=== PATIENT | male | born 1990 | race Hispanic/Latino ===

== ENCOUNTER 2017-01-23 08:01 | Emergency (ER) | payer OTHER ==
[~2017-01-23] VITALS: Ht 177.8 cm; Wt 136.4 kg
[2017-01-23 08:07] VITALS: BP 141/91; PULSE 72; RESP 18; O2SAT 97
--- NOTE | 2017-01-23 08:13 | ED.REPORT ---
HPI-Abd Pain M Under 40 Date of Service Jan 23, 2017 ED Provider: Henrry Long MD The patient is a 26 year old male with history of GERD who presents to the emergency department complaining of upper abdominal pain that began at 0230 this morning. Last night he felt like he had some acid reflux. He took TUMS and went to sleep but woke up at 0230 with severe pain to his upper abdomen. He has also experienced nausea. He has had similar symptoms in the past but the pain normally goes away. He denies fever, chills, vomiting, bloody emesis, black/ tarry stools or diarrhea. He drinks maybe 1 alcoholic drink per day. He does not normally take NSAID medications. He has not previously had abdominal surgery. Nursing Notes Stated Complaint: STOMACH PAIN/BACK PAIN Chief Complaint: Male Abdominal Pain Nursing Notes Reviewed: Yes Allergies: Coded Allergies: metoclopramide HCl (Verified Adverse Reaction, Severe, Nausea,Vomiting, ) Pt became more nauseated and vomited after taking med. Sister is allergic/has adv rxn to Reglan as well. Scheduled Pantoprazole DR (Pantoprazole DR) 20 Mg Tablet.dr 20 MG PO BID General Time Seen by MD: 08:07 Chief Complaint Abdominal pain Hx Obtained From: Patient Arrived By: Walk-in Sudden in Onset?: Yes Onset Occurred: 5 - 8 hours ago Symptom Duration: Since onset Progression since Onset: Constant Location: : Abdomen upper Quality: Painful Radiation: : Does not radiate Severity: Current: Moderate Severity: Maximum: Moderate Associated with: Reports: Nausea Pertinent Negative: Pt denies other symptoms Recent Healthcare: No recent doctor visit, No recent hospitalization Similar Sx Previous: Yes Past Medical History Past Medical History GERD Past Surgical History No previous abdominal surgeries Family History Noncontributory Social History Alcohol Use: "Social" Other Social History: Good social support, , Lives with children, Local resident Ambulatory Status Independent Review of Systems Constitutional: Denies: Chills, Fever GI: Reports: Abdominal pain, Nausea, Denies: Bloody/tarry stool, Diarrhea, Hematemesis, Hematochezia, Melena, Vomiting Complete sys rev & neg: except as marked. Physical Exam Initial Vital Signs Vital Signs (First) Date Time Temp Pulse Resp B/P Pulse Ox O2 Delivery O2 Flow Rate FiO2 01/23/17 08:07 37.4 72 18 141/91 97 Room Air Initial VS: Reviewed Head / Eyes: Atraumatic, Normocephalic, PERRL ENT: Mucous membranes moist, Conjunctiva normal, No scleral icterus Neck: Supple, Non-tender, Full range of motion Lymphatic: No lymphadenopathy Extremities: Vascular intact, Neuro intact, No swelling, No tenderness Skin: Warm, Dry, No cyanosis Neurologic: Alert, Oriented, Nonfocal Psychiatric: Mood/affect normal, Behavior normal, Normal thought content General/Constitutional: Awake, Alert, No acute distress, Well appearing Respiratory / Chest: Atraumatic, Breath sounds NL, Breath sounds = bilat, No respiratory distress, No rales, No rhonchi, No wheezing, No stridor Cardiovascular: Heart rate NL, Regular rhythm, Heart sounds NL, No gallop, No murmurs, No rubs, Peripheral circulation NL Abdomen: Soft, No guarding, No rebound, BS normoactive, No distention, No hernia, No palpable mass, No pulsatile mass Tenderness/Guarding/Rebound: Positive: Tender epigastric Back: No midline vertebral tend Interpretation & Diagnostics Lab Results Interpretation Result Diagram: 01/23/17 0810 01/23/17 0810 Test 01/23/17 08:10 White Blood Count 9.7th/mm3 (3.8-10.1) Red Blood Count 5.80mil/mm3 (4.40-5.80) Hemoglobin 16.7g/dL (13.8-17.2) Hematocrit 47.9% (41.0-50.0) Mean Corpuscular Volume 82.6fL (81-100) Mean Corpuscular Hemoglobin 28.8pg (27.0-35.0) Mean Corpuscular Hemoglobin Concent 34.9% (32.0-37.0) Red Cell Distribution Width 12.9% (12.3-15.4) Platelet Count 219bil/L (150-400) Neutrophils (%) (Auto) 59.8% (40-74) Lymphocytes (%) (Auto) 29.4% (14-46) Monocytes (%) (Auto) 6.9% (4-12) Eosinophils (%) (Auto) 3.3% (0-5) Basophils (%) (Auto) 0.5% (0-3) Sodium Level 141mEq/L (134-144) Potassium Level 3.8mEq/L (3.5-5.2) Chloride Level 103mEq/L (97-108) Carbon Dioxide Level 23mmol/L (18-29) Blood Urea Nitrogen 8mg/dL (6-20) Creatinine 0.87mg/dL (0.76-1.27) Estimat Glomerular Filtration Rate 112mL/min (>59) Glucose Level 104mg/dL (60-99) Calcium Level 8.7mg/dL (8.5-10.1) Total Bilirubin 0.9mg/dL (0.0-1.2) Aspartate Amino Transf (AST/SGOT) 31U/L (0-50) Alanine Aminotransferase (ALT/SGPT) 78U/L (0-44) Alkaline Phosphatase 90U/L (25-150) Total Protein 7.1g/dL (6.4-8.4) Albumin 4.0g/dL (3.4-5.0) Lipase 61U/L (13-60) Re-Eval/Medical Decision Med Decision/Clinical Course The patient is a 26 year old male with history of GERD who presents to the emergency department complaining of upper abdominal pain that began at 0230 this morning. Last night he felt like he had some acid reflux. He took TUMS and went to sleep but woke up at 0230 with severe pain to his upper abdomen. He has also experienced nausea. He has had similar symptoms in the past but the pain normally goes away, this morning and has been more persistent. Here in the emergency department he is afebrile with stable vital signs and appears moderately uncomfortable with mild tenderness about the epigastrium. Treated with IVF, Zofran, IV pantoprazole, and a GI cocktail. [place] for pain. Thereafter the patient reported near-complete resolution of his symptoms. Serial abdominal examinations remained benign. Overall presentation was consistent with GERD/gastritis versus peptic ulcer disease. No evidence of perforated ulcer. Abdominal examination relatively benign. I see no indication to obtain imaging studies at this time. Nature of pain and presentation unconvincing for acute biliary etiology. No findings suggestive of acute surgical process. Patient will be started on pantoprazole and was advised of dietary lifestyle changes including avoidance of NSAIDs/alcohol. He has been referred to GI. Follow-up and return precautions were reviewed in detail and he was discharged in good condition. LABS: CBC unremarkable, CMP mildly elevated lipase of 61, mildly elevated ALT, otherwise unremarkable. Source of Hx: Old records Re-Evaluation/Progress : Time of Eval: 09:05 Re-Evaluation/Progress Note: Rechecked the patient. Discussed plan for discharge. All questions were addressed. Counseled Regarding: Diagnosis, Lab results, Need for follow-up, When/why to return to ED Patient Discharge & Departure Primary Impression: Epigastric pain Additional Impressions: Gastritis Alcohol use GERD (gastroesophageal reflux disease) Esophagitis presence: esophagitis presence not specified Qualified Code: K21.9 - Gastro-esophageal reflux disease without esophagitis Disposition: Home Discharge Condition All VS Reviewed: Yes Condition: Stable Additional Instructions: Thank you for seeking care at the emergency room. It is difficult for us to make definitive diagnoses in the ED but we believe that you are experiencing acid reflux. Our primary goal today in the ED was to evaluate you for any life-threatening conditions. Your evaluation was reassuring. You will be discharged with a prescription for pantoprazole. I recommend avoiding any NSAID medications and alcohol. You should follow-up with a conflict resolution professional. We have given you a referral to Dr. Parra. You should return to the ED immediately if you develop increased pain, fevers, vomiting, bloody stools, black/tarry stools. or any other concerning signs or symptoms. Thank you for letting us partake in your care today. Referrals: Adán Parra MD [facility] Scribe Attestation Portions of this note were transcribed by Daria Hartman. I, Dr. Long personally performed the history, physical exam and medical decision-making; I reviewed and confirmed the accuracy of the information in the transcribed note. Signed by: Liang Springer, 01/23/2017 at 0915. Henrry Long MD Jan 23, 2017 08:13 Daria Hartman Jan 23, 2017 08:16 Henrry Long MD Jan 23, 2017 08:13 Daria Hartman Jan 23, 2017 08:16
[2017-01-23] MEDS ORDERED: 0.9% Sodium Chloride 1,000 ML IV ONE (08:24)
[2017-01-23] MEDS ORDERED: Ondansetron 2 mg/mL 2 mL Inj IVPUSH ONE (08:25)
[2017-01-23] MEDS ORDERED: LidocaineVisc 2%:Antacid 1:1 10 mL Syringe PO ONE (08:25)
[2017-01-23] MEDS ORDERED: Pantoprazole 4 mg/mL 10 mL Inj IVPUSH ONE (08:25)
[2017-01-23] MEDS ORDERED: PANT20TA2 PO (08:26)
[2017-01-23 08:32] LABS: BASOPHILS % (AUTO) 0.5 % (0-3); EOSINOPHILS % (AUTO) 3.3 % (0-5); MONOCYTES % (AUTO) 6.9 % (4-12); Mean Corpuscular Hemoglobin 28.8 pg (27.0-35.0); Mean Corpuscular Volume 82.6 fL (81-100); NEUTROPHILS % (AUTO) 59.8 % (40-74); Platelet Count 219 bil/L (150-400)
[2017-01-23] MEDS ORDERED: HYDROcodone-APAP 10-325 mg PO ONE (09:15)
[2017-01-23 09:31] VITALS: BP 125/90; PULSE 64; RESP 20; O2SAT 98
== END 2017-01-23 09:33 | disposition home or self-care (01) ==
LOC: SED 08:01
DX: R10.13 Epigastric pain (principal); K29.70 Gastritis, unspecified, without bleeding; K21.9 Gastro-esophageal reflux disease without esophagitis; Z72.89 Other problems related to lifestyle; Z88.8 Allergy status to other drugs, medicaments and biological substances
CPT/HCPCS: 36415; 80053; 83690; 85025; 96361; 96374; 96375; 99284; J2405; J7030

== ENCOUNTER 2017-01-26 18:48 | Inpatient (IN) | payer OTHER ==
[~2017-01-26] VITALS: Ht 177.8 cm; Wt 144.0 kg
[~2017-01-26 18:48] MED LIST: Dexamethasone 4 mg/mL Inj ONE; Glycopyrrolate 0.2 mg/mL 5 mL Inj ONE; Neostigmine 1 mg/mL 10 mL Inj ONE; Ondansetron 2 mg/mL 2 mL Inj ONE; PANT20TA2 PO; Phenylephrine/NS 100 mCg/mL 10 mL Syringe IVPUSH ONE; Propofol 10,000 mCg/mL 20 mL Inj ONE; Rocuronium 10 mg/mL 5 mL Inj ONE; fentaNYL-PF 50 mCg/mL 2 mL Inj ONE
[2017-01-26 18:56] VITALS: BP 138/84; PULSE 77; RESP 16; O2SAT 95
[2017-01-26] MEDS ORDERED: Ondansetron 2 mg/mL 2 mL Inj ONE (19:42)
[2017-01-26 20:07] LABS: BASOPHILS % (AUTO) 1.1 % (0-3); EOSINOPHILS % (AUTO) 4.1 % (0-5); MONOCYTES % (AUTO) 9.7 % (4-12); Mean Corpuscular Hemoglobin 28.4 pg (27.0-35.0); Mean Corpuscular Volume 82.2 fL (81-100); NEUTROPHILS % (AUTO) 49.6 % (40-74); Platelet Count 243 bil/L (150-400)
--- NOTE | 2017-01-26 20:54 | ED.REPORT ---
HPI-Abd Pain M Under 40 Date of Service Jan 26, 2017 ED Provider: Prieto Abreu MD The patient is an otherwise healthy 26 year old male w/ a hx of GERD who presents to the ED due to episodic RUQ abdominal pain worsening over the past 4 days. He had an ultrasound done 01/25/17 which showed an abnormal gallbladder with focal areas of wall thickening and multiple small gallstones. Today at [facility], his liver enzymes were high and doctors referred him to the ED. Associated symptoms include nausea. He denies vomiting and fever. He last ate food at 1400. He drinks maybe 1 alcoholic drink per day. He does not normally take NSAID medications. He has not previously had abdominal surgery.He was last seen at the ED 01/23/17 for similar symptoms. Nursing Notes Stated Complaint: GALLBLADDER PAIN Chief Complaint: Male Abdominal Pain Nursing Notes Reviewed: Yes Allergies: Coded Allergies: metoclopramide HCl (Verified Adverse Reaction, Severe, Nausea,Vomiting, ) Pt became more nauseated and vomited after taking med. Sister is allergic/has adv rxn to Reglan as well. Scheduled Pantoprazole DR (Pantoprazole DR) 20 Mg Tablet.dr 20 MG PO BID Scheduled PRN Hydrocodone-Acetaminophen 5-325 mg (Hydrocodone-Acetaminophen 5-325 mg) 1 Each Tablet 1 TABLET PO Q4H PRN PRN For Pain Methocarbamol (Methocarbamol) 750 Mg Tablet 750 MG PO QID PRN PRN For Spasm General Time Seen by MD: 20:52 Chief Complaint Abdominal pain Hx Obtained From: Patient Arrived By: Walk-in Sudden in Onset?: Yes Past Medical History Past Medical History GERD Past Surgical History No previous abdominal surgeries Family History Noncontributory Social History Alcohol Use: "Social" Other Social History: Good social support, , Lives with children, Local resident Ambulatory Status Independent Review of Systems Constitutional: Denies: Fever GI: Reports: Abdominal pain, Nausea, Denies: Vomiting Complete sys rev & neg: except as marked. Physical Exam Physical Exam Notes: Initial Vital Signs Vital Signs (First) Date Time Temp Pulse Resp B/P Pulse Ox O2 Delivery O2 Flow Rate FiO2 01/26/17 18:56 36.2 77 16 138/84 95 Room Air Initial VS: Reviewed Head / Eyes: Atraumatic, Normocephalic, PERRL ENT: Mucous membranes moist, Conjunctiva normal, No scleral icterus Neck: Supple, Non-tender, Full range of motion Extremities: Vascular intact, Neuro intact, No swelling, No tenderness Skin: Warm, Dry, No cyanosis General/Constitutional: Awake, Alert, Cooperative Respiratory / Chest: Atraumatic, Breath sounds NL, No respiratory distress Cardiovascular: Heart rate NL, Regular rhythm, Heart sounds NL Abdomen: No guarding, No rebound, BS normoactive Tenderness/Guarding/Rebound: Positive: Tender RUQ... Back: Atraumatic, Inspection NL, Full range of motion Interpretation & Diagnostics Lab Results Interpretation Result Diagram: 01/26/17194401/26/171944 Test 01/26/17 19:45 White Blood Count 6.4th/mm3 (3.8-10.1) Red Blood Count 5.89mil/mm3 (4.40-5.80) Hemoglobin 16.7g/dL (13.8-17.2) Hematocrit 48.4% (41.0-50.0) Mean Corpuscular Volume 82.2fL (81-100) Mean Corpuscular Hemoglobin 28.4pg (27.0-35.0) Mean Corpuscular Hemoglobin Concent 34.5% (32.0-37.0) Red Cell Distribution Width 13.2% (12.3-15.4) Platelet Count 243bil/L (150-400) Neutrophils (%) (Auto) 49.6% (40-74) Lymphocytes (%) (Auto) 35.3% (14-46) Monocytes (%) (Auto) 9.7% (4-12) Eosinophils (%) (Auto) 4.1% (0-5) Basophils (%) (Auto) 1.1% (0-3) Hold Purple Top Tube Received (Received) Hold Blue Top Tube Received (Received) Sodium Level 134mEq/L (134-144) Potassium Level 3.8mEq/L (3.5-5.2) Chloride Level 99mEq/L (97-108) Carbon Dioxide Level 24mmol/L (18-29) Blood Urea Nitrogen 10mg/dL (6-20) Creatinine 0.77mg/dL (0.76-1.27) Estimat Glomerular Filtration Rate 129mL/min (>59) Glucose Level 95mg/dL (60-99) Calcium Level 8.9mg/dL (8.5-10.1) Magnesium Level 2.0mg/dL (1.6-2.6) Total Bilirubin 3.2mg/dL (0.0-1.2) Aspartate Amino Transf (AST/SGOT) 273U/L (0-50) Alanine Aminotransferase (ALT/SGPT) 364U/L (0-44) Alkaline Phosphatase 108U/L (25-150) Total Protein 7.1g/dL (6.4-8.4) Albumin 3.9g/dL (3.4-5.0) Lipase 44U/L (13-60) Hold [place] Top Tube Received (Received) Hold [place] Top Tube Received (Received) Re-Eval/Medical Decision Med Decision/Clinical Course GI input appreciated, CBP not visualized today. Was normal yesterday. Dr Ryan aware of concern for possible choledocholithiasis and will reassess in am. Zosyn started in ED. Given IV fluids, pain and nausea meds, will admit to surgery with GI consulting. Consultation #1: Referral / Consult Name: Jeremie Ryan MD Consulted With: Hospitalist Call Returned at: 21:55 Ebd Special Education Teacher: Agrees with eval, Agrees with plan, Accepts admit Note: Case discussed. Dr. Ryan will admit. Consultation #2: Referral / Consult Name: Jeremie Ryan MD Call Returned at: 22:44 Ebd Special Education Teacher: Will see patient Note: Dr. Ryan sees pt in the ED. Counseled Regarding: Diagnosis, Lab results, Need for admission Patient Discharge & Departure Primary Impression: Acute cholecystitis Disposition: ADMITTED TO HOSPITAL Discharge Condition All VS Reviewed: Yes Condition: Stable Referrals: Lilia Pro MD (PCP) Joel Attestation Portion of this note were transcribed by Dottie Rosas. I, Dr. Abreu, personally performed the history, physical exam, and medical decision-making: I reviewed and confirmed the accuracy for the information in the transcribed note. Signed by: joel Shah, 01/26/17 2300 copies to: Lilia Pro MD, Donald L MD Jan 26, 2017 20:54 Dottie Rosas Jan 26, 2017 21:04
[2017-01-26] MEDS: HYDROmorphone 1 mg/mL Inj IVPUSH PRN ×2 (21:15→21:58)
[2017-01-26] MEDS: Ondansetron 2 mg/mL 2 mL Inj IVPUSH PRN ×2 (21:15→22:00)
[2017-01-26] MEDS ORDERED: HYDR-4003 PO (22:12)
[2017-01-26] MEDS ORDERED: METH750T3 PO (22:12)
--- NOTE | 2017-01-26 22:38 | DRSVH ---
PROCEDURE: US ABDOMEN, LIMITED ([id number]) INDICATIONS: evaluate for cholecystitis TECHNIQUE: Real-time focused scanning was performed of the abdomen, with image documentation. COMPARISON: [facility], US, ABDOMEN SONOGRAM, 10/13/2013, 10:25. [facility] , US, US ABDOMEN, 01/25/2017, 15:55. FINDINGS: The gallbladder is semi-contracted. There are multiple gallstones. There is color wall thic kening measuring up to 6.8 mm. There is positive sonographic Noland sign. No pericholecystic fluid co llections. The common bile duct is not visualized. IMPRESSION: Cholelithiasis. There is gallbladder wall thickening and positive sonographic Noland sign , suspicious for acute cholecystitis. Dictated by: Mary Ross M.D. on 01/26/2017 at 22:33 Approved by: Mary Ross M.D. on 01/26/2017 at 22:36
[2017-01-26] MEDS ORDERED: Ondansetron 2 mg/mL 2 mL Inj IVPUSH PRN ×2 (22:50→23:40)
[2017-01-26] MEDS ORDERED: Piperacillin-Tazo 3.375 Gm Inj 3.375 GM in Dextrose 5% Minibag Plus 50 ML IV ONE (23:05)
[2017-01-26] MEDS ORDERED: Ondansetron 8 mg ODT Tablet PO PRN (23:40)
[2017-01-26] MEDS ORDERED: Morphine PCA 1 mg/mL 30 mL Inj - Standard IV PRN ×2 (23:40)
[2017-01-26] MEDS ORDERED: MetoCLOpramide 5 mg/mL 2 mL Inj IVPUSH PRN (23:40)
[2017-01-26 23:51] VITALS: RESP 18; O2SAT 98
[2017-01-26 23:54] VITALS: BP 110/70; PULSE 70; RESP 20; O2SAT 95
[2017-01-26] MEDS: 0.9% Sodium Chloride 1,000 ML IV SCH (23:59)
[2017-01-27] VITALS (15 sets, daily range): BP systolic 98–126; BP diastolic 61–81; PULSE 62–101; RESP 9–20; O2SAT 94–100
--- NOTE | 2017-01-27 00:08 | PCM.HPSURG ---
Subjective Date of Service: Jan 26, 2017 Referring Provider: Admitting Physician: Primary Care Physician: Lilia Pro MD Attending Physician: Chief Complaint Abdominal pain History of Present Illness 26 y/o obese male with a hx of GERD and migraine headaches who presented to the ED with a 5 day history of abdominal pain. He states that his pain started on Sunday night after dinner and was localized to his epigastric area, which prompted him to see his PCP. He notes that labs were done and he was prescribed methocarbamol for spasms so he could continue working. After which he endorses episodic pain 2-3 times per hour for the next couple of days that was severe enough at times he would have to hunch over. He states that he was groggy on the methocarbamol and having difficulty at work so he returned to his PCP's office. He received a script for hydrocodone, repeat labs were drawn and an ultrasound yesterday showed an abnormal gallbladder with focal areas of wall thickening and multiple small gallstones. He states that he was told his pancreas and liver enzymes were high and he was referred to the [facility] from [facility]. He endorses worsening of abdominal in the last 1-2 days and states that his pain has now localized to his right side and is associated with nausea as well as vomiting, loose stool and chills. He denies previous abdominal surgery, routine NSAID use, bloody or dark stool. In the ED, he was afebrile and normotensive with a BP of 138/84, HR 77, RR 16 and SpO2 of 95% on room air. Labs were significant for elevated total bilirubin of 3.2, elevated liver enzymes with AST/ALT of 273/364 and unremarkable alkaline phosphatase of 108 and lipase of 44. Abdominal ultrasound on 01/25 and again on 01/26 showing gallstones, gallbladder wall thickening and a positive sonographic Noland sign but no distention in the biliary tree was appreciated. Allergy Allergies: Coded Allergies: metoclopramide HCl (Verified Adverse Reaction, Severe, Nausea,Vomiting, ) Pt became more nauseated and vomited after taking med. Sister is allergic/has adv rxn to Reglan as well. 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, [employer] Hx Alcohol Use: Yes (socially) Hx Substance Use: No Hx Tobacco Use: Yes (chewing tobacco) PMH HEENT History History of ENT Problems?: No Cardiovascular History History of Heart Problems?: No Cardiovascular History: Positive for:: Heart Murmur (in high school) Denies:: Cardiac Surgery Chest Pain Congestive Heart Failure Edema Hypertension Irregular Heartbeat Pacemaker Thrombophlebitis Respiratory History of Respiratory Problem: Yes Respiratory History: Positive for:: Asthma Dyspnea Denies:: COPD Chest Surgery Emphysema Hemoptysis Pneumonia Tuberculosis Neurological History Hx Neurologic Problems?: Yes Neurological History: Positive for:: Headaches Denies:: Alzheimer's Disease CVA Dementia Dizziness Parkinson's Disease Seizures Gastrointestinal History HX of GI Problems?: Yes Gastrointestinal History: Positive for:: Gastroesphageal Reflux Heartburn Denies:: Diverticulitis Gastrointestinal Bleeding Hepatitis Hiatal Hernia Rectal Bleeding Genitourinary History Hx of Gu Problems?: No Genitourinary History: Denies: HX of Hemodialysis Kidney Stones Urinary Tract Infection Female/Male History Reproductive History Male: Denies: Prostate Problems Scrotal Mass Musculoskeletal History Hx Musculoskeletal Problems?: No Musculoskeletal History: Denies:: Back Injury Joint Replacement Musculoskeletal Trauma Psycho Social History Hx of Psycho/Social Problems?: No Other History Hx Any Other Health Problems?: No Other History: Denies:: Cancer Endocrine Disease Hospitalization Thyroid Disease Diabetes: No Other History/Comments . Has a daughter with current and son with previous partner. 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 Reports chewing tobacco, social alcohol use and occasional marijuana. Denies illicit drug use. and fiancee. Social History Hx Alcohol Use: YesHx Substance Use: No Smoking Status: Former Smoker Living Arrangement: with Family Family History Family History: Father, [place] at age 50 Mother, cholelithiasis s/p cholecystectomy Rheumatoid arthritis, extended family. PMH Family Diagnosis: Cardiac Review of Systems Constitutional: Reports: Chills Cardiovascular: Denies: Chest Pain Respiratory: Denies: Shortness of Breath Gastrointestinal: Reports: Abdominal Pain, Diarrhea, Nausea, Vomiting, Denies: Hematochezia, Melena Genitourinary: Denies: Dysuria, Hematuria Skin: Denies: Jaundice, Rash Neurological: Denies: Confusion, Dizziness H&P Surgical Exam Exam General: Alert, Oriented X3 Lungs: Clear to Auscultation Heart: Exam Unremarkable Abdomen: Soft (RUQ tender to palpation), Non-distended Extremities: Warm, Thigh&Calf Soft/Nontender Neuro: Grossly Neurologically Intact Lab & Micro Results: Laboratory Tests Test 01/26/17 19:45 White Blood Count 6.4th/mm3 (3.8-10.1) Red Blood Count 5.89mil/mm3 (4.40-5.80) Hemoglobin 16.7g/dL (13.8-17.2) Hematocrit 48.4% (41.0-50.0) Mean Corpuscular Volume 82.2fL (81-100) Mean Corpuscular Hemoglobin 28.4pg (27.0-35.0) Mean Corpuscular Hemoglobin Concent 34.5% (32.0-37.0) Red Cell Distribution Width 13.2% (12.3-15.4) Platelet Count 243bil/L (150-400) Neutrophils (%) (Auto) 49.6% (40-74) Lymphocytes (%) (Auto) 35.3% (14-46) Monocytes (%) (Auto) 9.7% (4-12) Eosinophils (%) (Auto) 4.1% (0-5) Basophils (%) (Auto) 1.1% (0-3) Hold Purple Top Tube Received (Received) Hold Blue Top Tube Received (Received) Sodium Level 134mEq/L (134-144) Potassium Level 3.8mEq/L (3.5-5.2) Chloride Level 99mEq/L (97-108) Carbon Dioxide Level 24mmol/L (18-29) Blood Urea Nitrogen 10mg/dL (6-20) Creatinine 0.77mg/dL (0.76-1.27) Estimat Glomerular Filtration Rate 129mL/min (>59) Glucose Level 95mg/dL (60-99) Calcium Level 8.9mg/dL (8.5-10.1) Magnesium Level 2.0mg/dL (1.6-2.6) Total Bilirubin 3.2mg/dL (0.0-1.2) Aspartate Amino Transf (AST/SGOT) 273U/L (0-50) Alanine Aminotransferase (ALT/SGPT) 364U/L (0-44) Alkaline Phosphatase 108U/L (25-150) Total Protein 7.1g/dL (6.4-8.4) Albumin 3.9g/dL (3.4-5.0) Lipase 44U/L (13-60) Hold [place] Top Tube Received (Received) Hold [place] Top Tube Received (Received) Diagnostics: US ABDOMEN (01/25/17) IMPRESSION: 1. Abnormal gallbladder with focal areas of wall thickening and multiple small gallstones within it. No tenderness or pericholecystic fluid is seen. Biliary tree is not distended. Dictated by: Ace Drake M.D. on 01/25/2017 at 19:51 Approved by: Ace Drake M.D. on 01/25/2017 at 19:57 US ABDOMEN, LIMITED (01/26/17) IMPRESSION: Cholelithiasis. There is gallbladder wall thickening and positive sonographic Noland sign, suspicious for acute cholecystitis. Dictated by: Mary Ross M.D. on 01/26/2017 at 22:33 Approved by: Mary Ross M.D. on 01/26/2017 at 22:36 Assessment & Plan Assessment 26 y/o obese male with a hx of GERD who presented to the ED c/o intermittent abdominal pain and subsequently admitted for cholecystitis and possible choledocholithiasis. Primary diagnosis: 1. Acute cholecystitis, present on admission. -Pt presented w/5 day hx of episodic RUQ pain c/w biliary colic, elevated liver enzymes and total bilirubin of 3.2. Normal lipase, alk phos. -Abdominal US showing gallbladder wall thickening, multiple gallstones and no distention of biliary tree. 2. Possible choledocholithiasis, present on admission. -Elevated total bilirubin c/w biliary obstruction. No distention of biliary tree appreciated on abd US x2. -Labs 3 days ago showing: AST/ALT of 31/78, alk phos 90, total bilirubin 0.9 and lipase 61. 3. History of GERD, present on admission. -Chronic, stable and well controlled on pantoprazole. . Pain Evaluation: Adequate Pain Control VTE Prophylaxis Indicated: Meets Criteria for Anticoag Therapy VTE Mechanical Devices: Venous Foot Pump Plan: -Reevaluate surgical options pending morning lab results (repeat CMP, CBC, lipase). -Pt may need ERCP prior to cholecystectomy if labs tomorrow c/w biliary obstruction. -Consult from the ED to GI, who recommend possible transfer to facility w/ higher level of care as ERCP may not be possible over the weekend. -Keep NPO for possible procedure/surgery tomorrow. -IV Dilaudid, zofran prn -Start IV zosyn -Continue home dosing pantoprazole, when pt eating. . Resuscitation Status: CPR: Attempt Resuscitation Attending Statement: I interviewed and examined the pt, and I agree with Dr. العراقي's assessment and plan. Admit and repeat labs in the AM. Start abx. Tyra العراقي DO Jan 26, 2017 23:09 Jeremie Ryan MD Jan 31, 2017 10:54
[2017-01-27] MEDS: Ondansetron 2 mg/mL 2 mL Inj IVPUSH PRN ×2 (00:12→07:09)
--- NOTE | 2017-01-27 00:33 | NUR ---
ADMIT; 26 yr old male to room 1029 via gurney from e.r. approx. 2300 w/c/o abd pain, nausea past couple of days. See Admit screens. PRODUCT ANALYST m.s. set up. Zofran given per request- pt states has a tendency to become nauseated with narcotics.
[2017-01-27] MEDS ORDERED: 0.9% Sodium Chloride 100 ML ONE (01:22)
--- NOTE | 2017-01-27 02:39 | NUR ---
PAIN/NAUSEA; ms solar maintenance technician set up. Zofran given shortly after, for pt's worry about his hx of getting nauseated with narcotics. c/o headache and insomnia- benadryl in ns bag hung- pt asleep at this time. CYTOTECHNOLOGIST/HISTOTECHNOLOGIST 95 on room air.
[2017-01-27 06:27] LABS: BASOPHILS % (AUTO) 0.7 % (0-3); EOSINOPHILS % (AUTO) 3.3 % (0-5); MONOCYTES % (AUTO) 7.5 % (4-12); Mean Corpuscular Hemoglobin 28.9 pg (27.0-35.0); Mean Corpuscular Volume 84.4 fL (81-100); Platelet Count 233 bil/L (150-400)
[2017-01-27 06:45] LABS: INR 0.95 ratio
[2017-01-27 08:15] LABS: COLOR,URINE DARK YELLOW (YELLOW)
[2017-01-27 08:16] LABS: APPEARANCE,URINE CLEAR (CLEAR,HAZY); ICTOTEST,URINE POSITIVE (Negative); OCCULT BLOOD,URINE NEGATIVE (NEGATIVE); UROBILINOGEN,URINE NORMAL (NORMAL)
[2017-01-27] MEDS ORDERED: Piperacillin-Tazo 3.375 Gm Inj 3.375 GM in Dextrose 5% Minibag Plus 50 ML IV SCH (08:30)
[2017-01-27] MEDS: 0.9% Sodium Chloride 1,000 ML IV SCH ×2 (08:50→17:21)
--- NOTE | 2017-01-27 10:29 | NUR ---
SS- Brief Note Data: EMR reviewed. Pt is a 26 year old male admitted 01/26/17 for acute cholecystitis per H&P. Pt's insurance is [employer]. Pt's PCP is Lilia Cao MD. SW met with pt at bedside regarding discharge plan, SW role explained. Pt alert and oriented x3. Pt resides in [place] with his and his father where he remains independent with his ADLs. SW spoke with pt regarding DPOA, pt requested DPOA paperwork which SW provided. Pt to discharge home with to transport via POV. No anticipated discharge needs. SW will continue to follow if needs arise. Assessment: [place]. Plan: Pt to discharge home with to transport via POV. No anticipated discharge needs. SW will continue to follow if needs arise. RICARDO Levine
--- NOTE | 2017-01-27 11:40 | NUR ---
Pt Off Unit Pt off unit to OR. Family took jeweler that pt removed.
[2017-01-27] MEDS ORDERED: Lactated Ringer's 1,000 ML IV ONE (11:45)
--- NOTE | 2017-01-27 12:07 | PCM.HPANE ---
Patient Data Surgeon Admitting Provider:Jeremie Ryan MD Attending Provider:Jeremie Ryan MD Primary Care Physician:Lilia Pro MD Other Provider: Reason for Visit Acute Cholecystitis Ht/WT & BMI Height (Feet): 5 Height (Inches): 10.00 Weight (Kilograms): 144.000 Body Mass Index 45.45 Allergies Coded Allergies: metoclopramide HCl (Verified Adverse Reaction, Severe, Nausea,Vomiting, ) Pt became more nauseated and vomited after taking med. Sister is allergic/has adv rxn to Reglan as well. Past Anesthesia History Anesthesia History: Denies:: Anesthesia Reactions Diabetes History Hx Diabetes?: No MRSA MRSA: No Medications Active Scripts Pantoprazole DR 20 Mg Tablet.dr20 Mg PO BID 30 Days Ref 0 Prov:Henrry Long MD 01/23/17 Reported Medications Hydrocodone-Acetaminophen 5-325 mg 1 Each Tablet1 Tablet PO Q4H PRN For Pain Ref 0 01/26/17 Methocarbamol 750 Mg [id number] Mg PO QID PRN For Spasm Ref 0 01/26/17 History History of ENT Problems?: No HEENT History: Positive for:: Sinus Problem Denies:: Cataracts Dysphagia Glaucoma Hx of Heart Problems?: No Cardiovascular History: Positive for:: Heart Murmur (in high school) Denies:: Cardiac Surgery Chest Pain Congestive Heart Failure Edema Hypertension Irregular Heartbeat Pacemaker Thrombophlebitis Other Cardiac History: above per "recall" Hx of Respiratory Problem?: Yes Respiratory History: Positive for:: Asthma Dyspnea Denies:: COPD Chest Surgery Emphysema Hemoptysis Pneumonia Tuberculosis Other Resp Pertinent History: above per "recall" Hx Neurologic Problems?: Yes Neurological History: Positive for:: Headaches Denies:: Alzheimer's Disease CVA Dementia Dizziness Parkinson's Disease Seizures Other Neurological Pertinent: above per "recall" Hx of GI Problems?: Yes Gastrointestinal History: Positive for:: Gastroesphageal Reflux Heartburn Denies:: Diverticulitis Gastrointestinal Bleeding Hepatitis Hiatal Hernia Rectal Bleeding Other GI Pertinent History: above per "recall" Hx of Problems?: No Genitourinary History: Denies:: HX of Hemodialysis Kidney Stones Urinary Tract Infection HX of Peritoneal Dialysis: No Other Pertinent History: above per "recall" Male Hx: Denies:: Prostate Problems Scrotal Mass Testicular Surgery Hx Musculoskeletal Problems?: No Musculoskeletal History: Denies:: Back Injury Joint Replacement Musculoskeletal Trauma Hx of Psycho/Social Problems?: No Other Psych Pertinent History: above per "recall" Hx Surgeries?: Yes (dental) Hx Any Other Health Problems?: No Other History: Denies:: Cancer Endocrine Disease Hospitalization Thyroid Disease History Blood Transfusions: Positive for:: Accept Blood Products? 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, [employer] Hx Alcohol Use: YesAlcoholic Drinks Per Day: SOCIALLYHx Substance Use: No Smoking Status: Former Smoker Have You Smoked inLast 12 mo: No Stop/Bang Treated for Sleep Apnea?: No Do You Have a CPAP Machine?: Yes (does not use) S-Snoring: Do You Snore Loudly: Yes T-Tired: feel tired, fatigued: Yes O-Obsered: Observed not breath: Yes P-Blood Pressure: treated: No B- Body Mass Index > 35 kg/m2: Yes A- Age over 50: No N- Neck Large Circumference: No G- Gender Male: Yes MILLICENT Total Score: 6 Risk Assessment Category Category 1A: Patient has history of documented sleep apnea, and HAS NOT received any narcotic, sedative or anesthesia administration during this stay. Category 1B: Patient has history of documented sleep apnea, and HAS received any narcotic , sedative or anesthesia administration during this stay Category 2: Patient has SUSPECTED Obstructive Sleep Apnea, and HAS received any narcotic , sedative or anesthesia administration during this stay. Category 3: Patient has SUSPECTED Obstructive Sleep Apnea and HAS NOT received narcotic, sedative or anesthesia administration during this stay. Category 4: Outpatient in Procedural Areas with known sleep apnea or who screen positive for High Risk via the STOP/BANG questionnaire. Exam Exam Vital Signs Vital Signs Date Time Temp Pulse Resp B/P Pulse Ox O2 Delivery O2 Flow Rate FiO2 01/27/17 10:45 36.6 64 18 99/61 95 Room Air 01/27/17 06:40 36.7 65 20 120/69 95 Room Air 01/27/17 03:47 18 General Appearance: Alert, Oriented X3, Cooperative, No Acute Distress HEENT/AIRWAY: MP 2, Neck Movement (FROM), Mouth Opening (3 FBMO) Lungs: Clear to Auscultation, Normal Air Movement Heart: Exam Unremarkable, Regular Rate/Rhythm, No Murmurs/Rubs/Gallops Meds/Labs/Diagnostics Admission Meds Current Medications Ondansetron HCl 8 mg 8 mg STK-MED ONCE .ROUTE Last administered on 01/26/17 19 :52; Start 01/26/17 at 19:42; Stop 01/26/17 at 19:43; Status DC Sodium Chloride 1,000 ml @ 100 mls/hr Q10H IV Last administered on 01/26/17 23:59; Start 01/26/17 at 22:50 Piperacillin Sod/ Tazobactam Sod 3.375 gm/Dextrose/ Water 50 ml @ 100 mls/hr ONCE ONCE IV Last administered on 01/27/17 02:49; Start 01/26/17 at 23:05; Stop 01/26/17 at 23:34; Status DC Sodium Chloride 100 ml @ ud STK-MED ONCE .ROUTE Last administered on 01/27/17 01:31; Start 01/27/17 at 01:22; Stop 01/27/17 at 01:23; Status DC Piperacillin Sod/ Tazobactam Sod/ Dextrose/Water (Zosyn 3.375 Gm Inj/D5W Minibag Plus) 50 ml @ 12.5 mls/hr Q8 IV Last administered on 01/27/17 10:11; Start 01/27/17 at 08:30 Labs Test 01/26/17 07:01 01/26/17 19:45 01/27/17 06:15 Urine Color Dark yellow (YELLOW) Urine Appearance Clear (CLEAR,HAZY) Urine pH 5.0 (5.0-8.0) Urine Specific [place] 1.028 (1.003-1.035) Urine Protein Negativemg/dL (NEG,TRACE) Urine Glucose (UA) Negativemg/dL (NEGATIVE) Urine Ketones Negativemg/dL (NEGATIVE) Urine Occult Blood Negative (NEGATIVE) Urine Nitrite Negative (NEGATIVE) Urine Bilirubin Small (NEGATIVE) Urine Ictotest Positive (Negative) Urine Urobilinogen Normalmg/dL (NORMAL) Urine Leukocyte Esterase Negative (NEGATIVE) Urine RBC 0-2/hpf (0-2) Urine WBC 0-5/hpf (0-5) Urine Epithelial Cells Few/hpf (NONE-MOD) Urine Crystals Ammonium biurates (NONE Urine Bacteria None/hpf (NONE-FEW) Urine Hyaline Casts None/lpf (NONE) Urine Granular Casts None seen (NONE SEEN) Urine Waxy Casts None seen (NONE SEEN) Urine Red Blood Cell Casts None seen (NONE SEEN) Urine White Blood Cell Casts None seen (NONE SEEN) Urine Mucus None seen (None Seen) Urine Trichomonas None seen (NONE SEEN) Urine Yeast None (NONE SEEN) Urinalysis Comment None Urine Culture Reflexed Not indicated Hold Purple Top Tube Received (Received) Hold Blue Top Tube Received (Received) Magnesium Level 2.0mg/dL (1.6-2.6) Hold [place] Top Tube Received (Received) Hold [place] Top Tube Received (Received) White Blood Count 7.0th/mm3 (3.8-10.1) Red Blood Count 5.50mil/mm3 (4.40-5.80) Hemoglobin 15.9g/dL (13.8-17.2) Hematocrit 46.4% (41.0-50.0) Mean Corpuscular Volume 84.4fL (81-100) Mean Corpuscular Hemoglobin 28.9pg (27.0-35.0) Mean Corpuscular Hemoglobin Concent 34.3% (32.0-37.0) Red Cell Distribution Width 13.3% (12.3-15.4) Platelet Count 233bil/L (150-400) Neutrophils (%) (Auto) 66.0% (40-74) Lymphocytes (%) (Auto) 22.4% (14-46) Monocytes (%) (Auto) 7.5% (4-12) Eosinophils (%) (Auto) 3.3% (0-5) Basophils (%) (Auto) 0.7% (0-3) Prothrombin Time 10.2sec (8.1-12.5) Prothromb Time International Ratio 0.95ratio Sodium Level 139mEq/L (134-144) Potassium Level 4.4mEq/L (3.5-5.2) Chloride Level 104mEq/L (97-108) Carbon Dioxide Level 24mmol/L (18-29) Blood Urea Nitrogen 10mg/dL (6-20) Creatinine 0.95mg/dL (0.76-1.27) Estimat Glomerular Filtration Rate 101mL/min (>59) Glucose Level 139mg/dL (60-99) Calcium Level 8.6mg/dL (8.5-10.1) Total Bilirubin 2.2mg/dL (0.0-1.2) Aspartate Amino Transf (AST/SGOT) 202U/L (0-50) Alanine Aminotransferase (ALT/SGPT) 372U/L (0-44) Alkaline Phosphatase 118U/L (25-150) Total Protein 6.6g/dL (6.4-8.4) Albumin 3.7g/dL (3.4-5.0) Lipase 35U/L (13-60) Plan Impression Patient chart reviewed, patient interviewed and anesthestic plan with risks, benefits, and alternatives discussed, and informed consent obtained. NPO Status: > 8 hrs ASA Physical Status: ASA3 Severe Disease (BMI 45) Anesthetic Plan: GA Bene/Risks/Altern/Consents: Yes HP Complete Prior to Induction: Yes Tyshawn Balderas MD Jan 27, 2017 11:02
[2017-01-27] MEDS ORDERED: hydrALAZINE 20 mg/mL Inj IVPUSH PRN (12:10)
[2017-01-27] MEDS ORDERED: EPHEDrine Sulfate 50 mg/mL Inj IVPUSH PRN (12:10)
[2017-01-27] MEDS ORDERED: Lactated Ringer's 1,000 ML IV SCH (12:10)
[2017-01-27] MEDS ORDERED: Lactated Ringer's 500 ML IV PRN (12:10)
[2017-01-27] MEDS ORDERED: Dexamethasone 4 mg/mL Inj IVPUSH PRN (12:10)
[2017-01-27] MEDS ORDERED: fentaNYL-PF 50 mCg/mL 2 mL Inj IVPUSH PRN (12:10)
[2017-01-27] MEDS ORDERED: Atropine 0.4 mg/mL Inj IVPUSH PRN (12:10)
[2017-01-27] MEDS ORDERED: Ondansetron 2 mg/mL 2 mL Inj IVPUSH PRN (12:10)
[2017-01-27] MEDS ORDERED: Phenylephrine 10,000 mCg/mL Inj IVPUSH PRN (12:10)
[2017-01-27] MEDS ORDERED: Labetalol 5 mg/mL 4 mL Inj IV PRN (12:10)
[2017-01-27] MEDS ORDERED: Bupivacaine-MPF 0.25%/EPI 30 mL Inj INJ ONE (12:24)
--- NOTE | 2017-01-27 12:27 | CONS ---
[address] [address] CONSULTATION REPORT PATIENT: SEAN CONTRERAS : 1990 MR#: [id number] ADMIT: 01/26/2017 JOB ID: [id number] DATE OF SERVICE: REASON FOR CONSULTATION: It was a pleasure seeing the patient at [facility] service for evaluation of abdominal pain. HISTORY OF PRESENT ILLNESS: This is a 26-year-old, obese gentleman with history of reflux, occasional migraine and wisdom tooth removal. He comes in with about a week worth history of abdominal pain. It started on Sunday evening while he was eating his evening meal. Then, suddenly, he had this intense localizing epigastric pain 08/21 but it did get better. It did not radiate. It was associated with some nausea. He went to his primary care doctor, and he was given methocarbamol. This made him a little groggy. However, he was able to work. Then, he started having abdominal pain with meals. It did not go away. Then, in the past day or two, his abdominal pain got worse, localized in the epigastric and right side and this time, with nausea, and he was vomiting. He was having chills, lack of appetite. He went to [facility], and they noticed that with abdominal pain his liver enzymes were elevated and on January 25, 2017, due to the abdominal pain, they did an ultrasound, which showed a focal area of wall thickening and multiple small gallstones. Unknown of the cbd size. I could not find the official US result. He came to the ED, and they did another ultrasound, which show thickened gallbladder consistent with cholecystitis, and positive sonographic Noland sign was noted. The gallbladder wall was up to 6.8 mm in size. However, there was no pericholecystic fluid. Laboratory examination revealed that he had normal white count, and his white count was not elevated this morning as well. His CBC was normal this morning. His INR was normal. His chemistry, however, showed that his total bilirubin was 3.2, AST was 273, ALT 364, and this morning his total bilirubin was 2.2, AST 202, ALT 372. The ultrasound here did not see the common bile duct very well because of his body habitus. PAST MEDICAL HISTORY: Reflux, migraines. PAST SURGICAL HISTORY: [place] tooth removal. FAMILY HISTORY: Noncontributory. SOCIAL HISTORY: Occasionally drinks alcohol. No tobacco. , lives with his family. REVIEW OF SYSTEMS: As above. Denies any chest pain, shortness of breath, dizziness, lightheadedness, diarrhea, constipation, blood in the stools, or black stools. No weight loss. Positive review of systems as above. PHYSICAL EXAMINATION: Patient is alert, oriented, in mild distress. Temp 36.6, pulse 64, respirations 18, blood pressure 99/61, saturating at 95% on room air. Head and neck: No obvious icterus. Lungs: Clear. Cardiovascular: Regular rate and rhythm. Normal S1, S2. Abdomen: Soft. There is epigastric tenderness, without guarding, rebound, or firmness. Decreased breath sounds. Extremities: No pitting edema of the ankles. Skin shows no obvious jaundice. IMPRESSION: This is a gentleman who has underlying cholecystitis with elevated LFT. These indicate that he could have a stone in the common bile duct. However, we have not been able to visualize the common bile duct size on today's US. However, LFT are slightly trending down. We need a better visualization of the common bile duct to determine whether or not he has choledocholithiasis. Therefore, recommended the following. RECOMMENDATION: MRCP. If the MRCP shows a stone or dilated ducts, will need to transfer the patient for ERCP. I do not perform ERCP. If there is no ductal dilation, then he probably passed a stone. However, would keep an eye on his liver function tests. If liver function tests do increase despite negative imaging studies, that means there is a stone that the imaging study missed and therefore, it would require transfer for ERCP. Plan discussed with the surgeons. Addendum (12/31/2016) I was able to find the US from 01/25/2017. CBD 4.4 mm. MTDD
--- NOTE | 2017-01-27 12:56 | DRSVH ---
PROCEDURE: X-RAY OPERATIVE CHOLANGIOGRAM ([id number]) INDICATIONS: CHOLECYSTITIS COMPARISON: None. FINDINGS: Biliary ducts: The surgeon injected contrast into the biliary ducts after cannulation of the cystic duct stump. Visualized intra- and extrahepatic bile ducts are normal in caliber, without strictures. No intraluminal filling defects to suggest retained ductal stones or sludge. No evidence for iatro genic ductal injury. Duodenum: Contrast flows promptly through the sphincter of Oddi into the duodenum, which appears nor mal in caliber. IMPRESSION: Normal intraoperative cholangiogram. Dictated by: Estefany Mead MD, PhD on 01/27/2017 at 12:55 Approved by: Estefany Mead MD, PhD on 01/27/2017 at 12:55
[2017-01-27] MEDS ORDERED: Polyethylene Glycol (PEG) 17 Gm Powder PO ONE ×2 (13:00→17:10)
[2017-01-27] MEDS ORDERED: diphenhydrAMINE 25 mg Capsule PO PRN (13:00)
[2017-01-27] MEDS: HYDROmorphone 1 mg/mL Inj IVPUSH PRN ×2 (13:28→13:33)
--- NOTE | 2017-01-27 14:21 | NUR ---
Transfer Pt transferred to [facility] room 1029 at 1421 via stretcher. Pt A&Ox3. ACEVES. Able to transfer from stretcher to bed. Pt on 3L via NC O2 sats 95%. 3 lap sites C/D/I. 1 lap site has serous sanguinous drainage. Pain 10/10. PO medication to be given. SCDs on . Care continues.
--- NOTE | 2017-01-27 14:47 | PCM.ANEP1 ---
Post Anesthesia Phase 1 PACU Phase 1 Assessment Date of Service: Jan 26, 2017 Vital Signs Vital Signs Date Time Temp Pulse Resp B/P Pulse Ox O2 Delivery O2 Flow Rate FiO2 01/27/17 14:26 36.6 77 16 98/65 95 Nasal Cannula 3.00 01/27/17 14:18 Supplement Oxygen 01/27/17 14:00 36.7 81 15 110/72 96 Simple Mask 3 01/27/17 13:45 36.4 84 9 103/68 98 Simple Mask 6 01/27/17 13:30 94 19 120/77 97 Simple Mask 15 01/27/17 13:25 94 19 112/70 96 Simple Mask 15 01/27/17 13:20 101 20 113/79 94 Simple Mask 15 01/27/17 13:16 37.0 126/81 01/27/17 11:36 16 100 01/27/17 10:45 36.6 64 18 99/61 95 Room Air 01/27/17 09:30 16 98 Anesthetic Administered: GA Level of Alertness: Awake, talking ACEVES's with Equal Strength: Yes Pain: No (post op) Pain Scale Score: 10 Airway Device: Nasal Airway Oxygen Delivery: Simple Mask Lungs: Clear to Auscultation, Normal Air Movement Dermatome Level: Full Sensation Tyshawn Balderas MD Jan 27, 2017 14:47
--- NOTE | 2017-01-27 14:47 | PCM.ANEP2 ---
Post Anesthesia Evaluation ASA/CMS Post Anesthesia VS in Patient's Normal Range?: Yes Resp Stable; Airway Patent?: Yes CV Function & Hydration Stable: Yes Mental Status Recovered?: Yes Pain control Satisfactory?: Yes N/V Control Satisfactory?: Yes Tyshawn Balderas MD Jan 27, 2017 14:47
--- NOTE | 2017-01-27 15:59 | PROG NOTE ---
[address] [address] PROGRESS NOTE PATIENT: SEAN CONTRERAS : 1990 MR#: [id number] ADMIT: 01/26/2017 JOB ID: [id number] DATE: 01/27/2017 The patient is seen early in the morning on Sunday. He continues to have abdominal pain. He is afebrile. He has right upper quadrant tenderness. His white count remains normal. His bilirubin has trended down to 2.2. His transaminases are essentially unchanged. I believe he does have acute cholecystitis and I have recommended laparoscopic cholecystectomy with intraoperative cholangiogram as the next step. He agrees to proceed after full discussion of risks, benefits, and possible complications.
--- NOTE | 2017-01-27 16:44 | OP ---
[address] [address] OPERATIVE REPORT PATIENT: SEAN CONTRERAS : 1990 MR#: [id number] ADMIT: 01/26/2017 JOB ID: [id number] DATE OF SURGERY: 01/27/2017 PREOPERATIVE DIAGNOSIS(ES): Acute cholecystitis. POSTOPERATIVE DIAGNOSIS(ES): Acute cholecystitis. SURGEON: Brandan Amin MD CUSTOMER ADVOCATE: Shaka Arteaga PA-C PROCEDURE PERFORMED: Laparoscopic cholecystectomy with intraoperative cholangiogram. INDICATIONS: A 26-year-old male who is admitted to the Surgery service with possible cholecystitis, possible choledocholithiasis. His bilirubin has dropped a bit and we have discussed the option of transfer for MRCP and possible ERCP, versus moving ahead with laparoscopic cholecystectomy with intraoperative cholangiogram here. I have recommended the latter. He agrees to proceed after a full discussion of risks, benefits, and possible complications. FINDINGS: 1. Acute on chronic cholecystitis with a normal intraoperative cholangiogram as described below. 2. A nursing surgical services director was required for retraction and camera operation, particularly given the patient's body habitus with a BMI of 45 and central obesity. PROCEDURE IN DETAIL: Patient brought to the operating room. General anesthetic was administered. Surgical time-out was performed. SCOAP protocol was followed. He received perioperative Ancef. We obtained access with an optical trocar. The abdomen was insufflated. We placed three additional ports. The gallbladder was retracted cephalad. The patient had a long skinny gallbladder with evidence of chronic and acute cholecystitis. We dissected along what initially appeared to be the cystic duct and then came backwards until we reached the gallbladder. I was a bit concerned that the patient may have had a short cystic duct coming off of the right hepatic duct, and we therefore dissected up high along the gallbladder, both anteriorly and posteriorly, identifying the gallbladder wall in the hilar plate. Having obtained the so-called critical view of safety I was still concerned that the cystic duct was fairly short. We put a clip on the gallbladder side of the cystic duct and made a cystic duct incision, and passed our cholangiocatheter into the short segment of the cystic duct. We obtained our cholangiogram that demonstrated the patient had a very long tortuous cystic duct, although I suspect that this was traveling parallel to the common duct. There was no sign of filling defects, good flow into the duodenum, normal intrahepatic anatomy. We removed our cholangiocatheter and placed two clips on the patient side of the cystic duct, making certain that I was not impinging on the area posterior to the cystic duct that I thought might represent an accessory duct. This did leave the patient with a fairly long cystic duct, but I thought that was in his best interest rather than further dissection down towards to what may have been a tongue channel type setup. We stayed on the gallbladder wall and dissected the gallbladder out of the liver bed with minimal spillage of bile, and no spillage of stones. We controlled the small amount of bile spillage. We removed the gallbladder in a separate bag to avoid wound contamination. We now irrigated out the area with roughly 2 L of saline. There was no sign of bleeding, no sign of bile leak. We did inspect our clips and they were intact. The patient tolerated the procedure well. At this point we removed our catheter and all of our ports, closed his wounds with absorbable suture, and he was extubated and transferred to the recovery room.
[2017-01-28 00:35] VITALS: BP 100/59; PULSE 73; RESP 16; O2SAT 95
[2017-01-28] MEDS: 0.9% Sodium Chloride 1,000 ML IV SCH (03:07)
--- NOTE | 2017-01-28 03:40 | NUR ---
PAIN/SLEEP' oxycodone effective for incisional pain. Benadryl x2 for sleep with eventual effectiveness.
[2017-01-28 04:59] VITALS: BP 105/64; PULSE 82; RESP 18; O2SAT 96
[2017-01-28 05:50] LABS: BASOPHILS % (AUTO) 0.2 % (0-3); EOSINOPHILS % (AUTO) 0.6 % (0-5); MONOCYTES % (AUTO) 7.3 % (4-12); Mean Corpuscular Hemoglobin 28.9 pg (27.0-35.0); Mean Corpuscular Volume 85.7 fL (81-100); Platelet Count 228 bil/L (150-400)
--- NOTE | 2017-01-28 09:23 | PCM.DISURG ---
Surgical Discharge Instruction Date of Service Jan 28, 2017 Dates of Hospitalization Date of Hospital Admission Jan 26, 2017 at 23:25 Providers Admitting Physician: Jeremie Ryan MD Primary Care Physician: Lilia Pro MD Attending Physician: Jeremie Ryan MD Discharge Diagnosis Discharge Diagnosis cholecystitis, choledocholithiasis Post Operative diagnosis laparoscopic cholecystectomy and cholangiogram Diet Discharge Diet: Low fat Activity Discharge Activity-General: No restrictions, No driving while taking narcotic Dressing and Incisional Care Dressing Care: Allow Steri Stripes to fall off, Remove outer dressing after 24 hrs Hygiene: May shower Additional Instructions Discharge Instructions return to work as tolerated Follow Up Plan Follow Up Plan 2-3 weeks with [facility] for pathology review and wound check Brandan Amin MD Jan 28, 2017 09:23
[2017-01-28] MEDS ORDERED: OXYC5TAB72 PO (09:24)
[2017-01-28 09:35] VITALS: BP 108/71; PULSE 68; RESP 18; O2SAT 96
--- NOTE | 2017-01-28 10:10 | NUR ---
Social Work- Readiness for Discharge Data: EMR reviewed. Pt is on day 2 of hospitalization for acute cholecystitis per H&P. Pt to discharge later today. [place]. Pt to discharge home with girlfriend to transport via POV. No anticipated discharge needs. SW will continue to follow if needs arise. Assessment: [place]. Plan: Pt to discharge home with girlfriend to transport via POV. No anticipated discharge needs. SW will continue to follow if needs arise. RICARDO Levine
--- NOTE | 2017-01-28 11:43 | NUR ---
Discharge Patient discharged home with . patient was given hard copy of script for pain med, instructions on home care and s/s to report to Dr or seek medical treatment for. Patient agreed to understanding all information to him and declined any questions.
--- NOTE | 2017-01-28 12:33 | NUR ---
Social Work- Discharge Data: EMR reviewed. Pt is on day 2 of hospitalization for acute cholecystitis per H&P. Pt to discharge today. [place] base. Pt to discharge home with girlfriend to transport via POV. No discharge needs. Assessment: Pt who [place]. Plan: Pt to discharge home with girlfriend to transport via POV. No discharge needs. RICARDO Levine
--- NOTE | 2017-01-28 15:58 | PROG NOTE ---
[address] [address] PROGRESS NOTE PATIENT: SEAN CONTRERAS : 1990 MR#: [id number] ADMIT: 01/26/2017 JOB ID: [id number] DATE: The patient is postop day number one, laparoscopic cholecystectomy with cholangiogram. He is feeling well except for incisional pain. He is afebrile, stable vital signs. His abdomen is soft. His dressings are intact. His labs show a normal white count, hematocrit of 44 and normalizing LFTs. IMPRESSION/PLAN: Doing well. We will send him home today.
--- NOTE | 2017-01-28 18:59 | DIS ---
[address] [address] DISCHARGE SUMMARY PATIENT: SEAN CONTRERAS : 1990 MR#: [id number] ADMIT: 01/26/2017 JOB ID: [id number] DIS: 01/28/2017 DISCHARGE DIAGNOSIS: Cholecystitis, probable choledocholithiasis. OPERATIONS AND PROCEDURES: Laparoscopic cholecystectomy with intraoperative cholangiogram. HOSPITAL COURSE: A 26-year-old man admitted with findings consistent with cholecystitis with choledocholithiasis. His bilirubin dropped. On hospital day number two, he was taken to the operating room for laparoscopic cholecystectomy where he was found to have acute inflammation and a normal intraoperative cholangiogram. On postop day one, he is ready for discharge. He will be discharged with p.o. oxycodone, resume all previous meds, follow up with the [facility] in 2-3 weeks. He may return to work ad roxana.
--- NOTE | 2017-01-31 11:00 | PATH ---
SURGICAL PATHOLOGY Attending Physician:Brandan Amin MD CASE STATUS: Signed Out PATIENT NAME: SEAN CONTRERAS PID: [id number] : 1990 DATE COLLECTED:01/27/2017 00:00 SPECIMEN: Gallbladder CLINICAL HISTORY: GALLSTONE DISEASE 1). GALLBLADDER FINAL DIAGNOSIS: 1.GALLBLADDER: CHOLELITHIASIS WITH ASSOCIATED CHRONIC CHOLECYSTITIS. ICD10 CODE K80.66 GROSS DESCRIPTION: The specimen is received in one formalin filled container labeled with the patient's name, sublabeled "gallbladder" and consists of an opened 7.2 x 2.6 x 2.0 CM gallbladder. The serosa is smooth. The cystic duct is possibly identified. The serosa is smooth. The wall is 0.4-0.6 CM in thickness. The mucosa is a pink thomas to thomas-boateng in color. The lumen contains a thick yellow goodwin mucoid material and approximately 10-15 yellow-boateng rough calculi which range in size from 0.2-0.5 CM. 5 dermatology sales representative sections are submitted in one cassette. 01/29/2017 [facility] MICRO DESCRIPTION: See diagnosis. ICD-9 CODES: CPT CODES: 1: 36516 Electronically Signed Out Prieto Corey MD [facility]ology [facility] [address] [place] [address] Technical component performed at [facility], [facility] [address], [place], [address]
== END 2017-01-28 11:15 | disposition home or self-care (01) | DRG 419 ==
LOC: SED 18:48 → OSC 23:25
PROVIDERS: ADMIT Surgery; ATTEND Surgery
PROC: BF141ZZ Fluoroscopy of Gallbladder, Bile Ducts and Pancreatic Ducts using Low Osmolar Contrast (ICD-10-PCS; 2017-01-27)
PROC: 0FT44ZZ Resection of Gallbladder, Percutaneous Endoscopic Approach (ICD-10-PCS; principal; 2017-01-27 11:30)
DX: K81.0 Acute cholecystitis (principal); F17.220 Nicotine dependence, chewing tobacco, uncomplicated; K21.9 Gastro-esophageal reflux disease without esophagitis